=== PATIENT | male | born 1965 | race American Indian/Alaskan Native ===

== ENCOUNTER 2025-02-10 13:41 | Emergency (ER) | payer MEDICARE, OTHER ==
[~2025-02-10] VITALS: Ht 172.7 cm; Wt 127.4 kg
[~2025-02-10 13:41] MED LIST: FORTAMET500 MG PO; GLYBURIDE5 MG PO; HUMALOG100 UNIT/2 SUB-Q; HYDROCODON-ACE1 EA10 PO; LANTUS SOL100 UNIT/1 SUB-Q; LISINOPRIL10 MG PO; LYRICA100 MG PO
[2025-02-10] MEDS ORDERED: KETOROLAC TROMETHAMINE 30 MG/ML VIAL IV ONE (15:45)
[2025-02-10] MEDS ORDERED: SODIUM CHLORIDE 0.9% 1,000 ML IV PRN (15:45)
[2025-02-10] MEDS ORDERED: PROCHLORPERAZINE EDISYLATE 10 MG/2 ML VIAL IV ONE (15:45)
[2025-02-10 18:37] VITALS: BP 191/96
== END 2025-02-10 18:39 | disposition home or self-care (01) ==
LOC: ED 13:41
DX: R51.9 Headache, unspecified (principal); E11.9 Type 2 diabetes mellitus without complications; I10 Essential (primary) hypertension; F17.200 Nicotine dependence, unspecified, uncomplicated; Z88.8 Allergy status to other drugs, medicaments and biological substances; Z88.5 Allergy status to narcotic agent
CPT/HCPCS: 96374; 96375; 99283-25; J0780; J1200; J1885; J7030